=== PATIENT | female | born 1975 | race Caucasian/White ===

== ENCOUNTER 2022-07-20 08:00 | Outpatient (RCR) | payer OTHER, SELFPAY ==
[2022-07-06 08:06] VITALS: BP 134/88; PULSE 81; RESP 16; TEMP 36.1; BMI 29.2
--- NOTE | 2022-07-06 14:59 | PCM.WC.HP ---
History of Present Illness Date of Service: 07/06/22 Chief Complaint: Surgical wound dehiscence, left foot History of Wound: This is a 46-year-old female who is of normal body habitus. She was referred by Dr. Etienne Mike, Podiatric surgeon. The patient underwent left foot surgery on June 07, 2022, at which time the following procedures were performed: Left first metatarsophalangeal joint fusion, left second metatarsal osteotomy, left second proximal interphalangeal joint fusion, left second FDL transfer. The procedures were performed in [place], [place], by Dr. Mike. The patient has developed a slight surgical wound dehiscence at the site of her second metatarsal osteotomy. She has been referred by her keno writer / runner for evaluation and management. Currently, the patient has been using topical antibiotic ointment topically and gauze. She wears a boot, and is non-weight bearing. The patient is generally healthy, with a history of mitral valve prolapse, lumbar disc disease, and gastroesophageal reflux disease. Her BMI is 29.2. 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 Surgical wound dehiscence Home Medications famotidine 40 mg tablet 40 mg PO DAILY 07/06/22 [History Last Taken Unknown] multivitamin with iron 1 tab PO DAILY 07/06/22 [History Last Taken Unknown] naproxen 500 mg tablet 500 mg PO BID 07/06/22 [History Last Taken Unknown] pantoprazole 40 mg tablet,delayed release 40 mg PO BID 07/06/22 [History Last Taken Unknown] Allergy/AdvReac Type Severity Reaction Status Date / Time No Known Allergies Allergy Verified 07/06/22 08:30 Surgical History Postoperative state Social History Smoking Status: Never smoker Vital Signs Vital Signs Vital Signs: 07/06/22 08:06 Temperature 96.9 F L Temperature Source Temporal Pulse Rate 81 Respiratory Rate 16 Blood Pressure 134/88 H Blood Pressure Mean 103 Blood Pressure Source Monitor Blood Pressure Position Sitting Blood Pressure Location Left Arm Oxygen Delivery Method Room Air Weight Weight: 170 lb Body Mass Index (BMI) 29.2 Physical Exam Const alert, oriented x3, no apparent distress, average body habitus and well nourished General Appearance: cooperative, comfortable, well kempt and well developed Orientation / Consciousness: awake, oriented to person, oriented to place and oriented to time Exam Limitations: no limitations HEENT normocephalic, head/scalp atraumatic and hearing grossly normal bilaterally Head and Scalp: normal to inspection, normocephalic and atraumatic External Ear: external ears normal Eyes PERRL and EOMs intact bilaterally General Eye: normal appearance of both eyes Neck full ROM Resp normal respiratory effort, normal air movement, no retractions and no use of accessory muscles Effort and Inspection: able to speak in complete sentences Extremity no calf tenderness General Extremity: Negative for clubbing or cyanosis Skin Wound Narrative: Inspection of the patient's left foot reveal the dorsal incision related to the left first digit to be well approximated and healing appropriately. There is a slight surgical wound dehiscence related to the incision on the dorsal aspect of the left second digit. There is no sign of infection or cellulitis. There is no drainage or odor. There is a moderate amount of bioburden and nonviable tissue. The dimensions of the wound are documented elsewhere. An immobilizing pin remains in place at the distal tip of the patient's left second digit. Neuro oriented x3, CN's II-XII intact bilaterally, moves all extremities and no focal motor deficits Sensorium / Orientation: awake, alert, oriented to person, oriented to place and oriented to time Psych Appearance: grossly normal and appropriate Attitude: calm Activity / Motor Behavior: appropriate eye contact Speech: normal speech Mood & Affect: euthymic mood Thought Process: normal thought process Thought Content: normal thought content Attention / Concentration: attention grossly intact Debridement Note Debridement Note Wound debrided: Left second metatarsal osteotomy incision dehiscence Laterality: Left Type of Debridement: Excisional debridement Anesthesia Used: 5% Lidocaine Gel Depth: Down to and including healthy tissue and in the subcutaneous layer Percentage of wound debrided: 100 Instrument Used: 3mm curette Tissue Removed: Bioburden and nonviable tissue Severity: Fat Layer Exposed Amount of bleeding with debridement: Mild Bleeding Controlled with: Compression and gauze Patient tolerated procedure: Patient tolerated procedure well Post-Debridement Measurements and Additional Note: Post-Debridement Measurements/Treatment TRAVIS - Nurse 1 - General Ulcer Assessment Start: 07/06/22 08:05 Freq: Status: Active Protocol: KAIDEN Activity Type Activity Date Activity User E-sign Co-sign Detail Recorded Client Recorded Date Recorded By Document 07/06/22 08:06 MW [id number] 07/06/22 08:25 MW 07/06/22 08:06 WC - Today's Visit Information Type of service Initial Visit Arrival Mode Ambulatory, Crutches Transfer Assistance None Accompanied by sister Patient Identification Verified (Name & Yes ) Patient Requires Transmission-Based No Precautions Height and Weight Height 5 ft 4 in Weight 170 lb Weight in Pounds 170.0 lbs Body Mass Index (BMI) 29.2 BMI Classification Overweight BSA - Bert 1.83 Vital Signs Temperature (97.8 F-99.1 F) 96.9 F L Temperature Source Temporal Pulse Rate (60-100) 81 Pulse Location Monitor Respiratory Rate (12-18) 16 Respiratory rate source Observation Oxygen Delivery Method Room Air Blood Pressure (90/60-120/80) 134/88 H Blood Pressure Mean 103 Source Monitor Position Sitting Blood Pressure Location Left Arm History Since Last Visit- (Skip if this is Patient's initial visit) Left Footwear Removable Cast Walker/Walking Boot Right Footwear Regular Shoe Pain Scale: 0-10 Numeric Is Patient Pain Free? Yes Lower Extremity Assessment/ Foot Assessment/ Toe Nail Assessment Right -Posterior Tibial Palpable Yes -Posterior Tibial Doppler Multiphasic -Dorsalis Pedis Palpable Yes -Dorsalis Pedis Doppler Multiphasic -Extremity Color Normal -Hair Growth on Legs Yes -Hair Growth on Toes Yes -Temperature of Extremity Cool -Dependent Rubor No -Lipodermatosclerosis No -Other Deformity No -Prior Foot Ulcer No -Charcot Joint No -Prior Amputation No -Thick No -Discolored No -Deformed No -Improper Length & Hygeine No Left -Posterior Tibial Palpable Yes -Posterior Tibial Doppler Multiphasic -Dorsalis Pedis Palpable Yes -Dorsalis Pedis Doppler Multiphasic -Extremity Color Normal -Hair Growth on Legs Yes -Hair Growth on Toes Yes -Temperature of Extremity Warm -Capillary Refill Less than 3 Seconds -Dependent Rubor No -Lipodermatosclerosis No -Other Deformity No -Prior Foot Ulcer No -Charcot Joint No -Prior Amputation No -Thick No -Discolored No -Deformed No -Improper Length & Hygeine No Neuropathy Assessment Feet - Top Side and Bottom <Entered> (a) Communication Assessment Preferred language Georgian Silk Examiner Required No Able to Read Yes Able to Write Yes Communication Tools None Caregiver Communication Skills No Impairment Impairment Right Hearing Abillity Normal Left Hearing Abillity Normal Visual Assistive Devices Glasses Teaching Assessment Preferences Verbal,Written, Audio/Visual, Demonstration Barriers to Learning None Readiness To Learn Excellent Willingness to Engage in Self Management High Activies Anxiety Level Calm Cooperation Cooperative Perception Coherent Interest in Health Problem Asks Questions Education Importance Acknowledges Need Does Patient Smoke tobacco or other Yes substances Smoking Status Never smoker Is Patient Diabetic No Functional Assessment Recent Decline in Ability to Perform Denies Any Declines Assistive Device With Patient Yes List Device(s) with Patient crutches Culture/Methodist/Capacitor Inspector Cultural/Methodist Needs that may affect No Treatment Plan Would you allow our hospital licensed electrician to No meet you for the purpose of spiritual/ emotional support? Capacitor Inspector to contact place of church No Teaching: Wound Center *Welcome to the Wound Center -Person Taught Patient,Family -Teaching Method Discussion -Response to teaching Verbalize understanding (a) 1 - + WC - Nurse 1 - General Ulcer Measurement Start: 07/06/22 08:05 Freq: Status: Active Protocol: Activity Type Activity Date Activity User E-sign Co-sign Detail Recorded Client Recorded Date Recorded By Document 07/06/22 08:06 MW [id number] 07/06/22 08:25 MW 07/06/22 08:06 Wound Center Nurse 1 #1 left 2nd toe -Combined with other wound No -Current Size (cm) - Length 0.5 -Current Size (cm) - Width 0.4 -Current Size (cm) - Depth 0.1 -Total Square Cm 0.20 -Date of Last Picture (Recall this 07/06/22 field) -Photo Taken Yes -Epithelialization None Present -Tunneling No -Undermining/Tunneling No -Circular Undermining No -Exudate Amt Small -Exudate Type Serosanguineous -Wound Margin Flat & Intact -Granulation Amt Small (1-33%) -Granulation Quality Colo -Slough/Fibrin Yes -Necrosis Amt Medium (34-66%) -Necrotic Tissue Type Adherent Slough -Structure Exposed N/A -Texture ([place]-wound Skin Appearance) Assessed, Localized Edema -Moisture ([place]-wound Skin Appearance) No Abnormality, Assessed -Color ([place]-wound Skin Appearance) No Abnormality, Assessed -Temperature ([place]-wound Skin No Abnormality Appearance) (Pt Warm) -Tenderness on Palpation ([place]-wound No Skin Appearance) -Ulcer Cleansing Rinsed/ Irrigated with Saline -Foul Odor after Cleansing No -Anesthetic Used 5% Lidocaine Gel Lower Limb Edema Present No Right Calf (cm) 40.0 Right Ankle (cm) 21.5 Point of measurement (cm from the medial 40.0 instep) Left Ankle (cm) 21.5 WC - Nurse 2 - General Ulcer CM Notes Start: 07/06/22 08:05 Freq: Status: Active Protocol: Activity Type Activity Date Activity User E-sign Co-sign Detail Recorded Client Recorded Date Recorded By Document 07/06/22 11:32 PL [id number] 07/06/22 11:33 PL 07/06/22 11:32 Wound Center Nurse 2 #1 left 2nd toe -Time 08:41 -Correct Patient Yes -Correct Side, Site, Position Yes -Correct Procedure Yes -Procedure Performed Yes -Type of Procedure Debridement -Clinical Debridement Subcutaneous -Tissue Removed Subcutaneous -Post Debridement (cm) - Length 0.5 -Post Debridement (cm) - Width 0.4 -Post Debridement (cm) - Depth 0.1 -Total Square (Post) (cm) 0.20 -Area of Debridement (cm) - Length 0.5 -Area of Debridement (cm) - Width 0.4 -Total Square (Area) (cm) 0.20 -Tunneling No -Undermining/Tunneling No -Circular Undermining No -Wound/Ulcer Outcome Not Healed -Ulcer Cleansing Rinsed/ Irrigated with Saline -Foul Odor after Cleansing No -Bioengineered Tissue No -Bleeding Controlled with Pressure -Treatment Response Procedure Tolerated Well -Debridement - Subq, 1st 20sq cm Yes Pain Scale: 0-10 Numeric Is Patient Pain Free? Yes - Nurse 3 - General Ulcer D/C NN Start: 07/06/22 08:05 Freq: Status: Active Protocol: Activity Type Activity Date Activity User E-sign Co-sign Detail Recorded Client Recorded Date Recorded By Document 07/06/22 08:59 AK [id number] 07/06/22 09:00 AK 07/06/22 08:59 Wound Care Nurse 3 #1 left 2nd toe -Ulcer Cleansing Rinsed/ Irrigated with Saline -Foul Odor after Cleansing No -Negative Pressure Wound Therapy N/A -Other Dressing hydrogel today -Primary Dressing Covered/Secured with Dry Gauze & Roll Gauze, Secured with Tape Pain Scale: 0-10 Numeric Is Patient Pain Free? 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 Etienne Mike on June 07, 2022. Procedures were performed on the first and second digits of the left foot. The surgical incision related to the first digit is well approximated and healing appropriately. The surgical incision related to the left second metatarsal osteotomy and interphalangeal joint fusion is mildly dehiscent. There is no sign of infection or cellulitis. The wound dehiscence has been debrided in the wound healing center today. We are to implement the use of collagenase Santyl applied topically to the wound on a daily basis. Patient has been instructed in the appropriate means of application. She has been provided with a prescription for collagenase Santyl, to be obtained at the local pharmacy. The patient indicates that she will be traveling and will be out of town next week, so follow-up will be scheduled for 2 weeks from this date. The patient has been instructed to implement measures to minimize potential for swelling in the lower extremity which is often inherent with traveling. The patient is to follow-up with Dr. Mike and management of her general surgical recovery. Total time: 58 minutes
[2022-07-20 08:00] VITALS: BP 144/72; PULSE 71; RESP 16; TEMP 35.7; BMI 29.2
--- NOTE | 2022-07-20 09:03 | HP.PCM_ITS ---
History of Present Illness Date of Service: 07/20/22 Chief Complaint: Surgical wound dehiscence, left foot History of Wound: This is a 46-year-old female who is of normal body habitus. She was referred by Dr. Etienne Mike, Podiatric surgeon. The patient underwent left foot surgery on June 07, 2022, at which time the following procedures were performed: Left first metatarsophalangeal joint fusion, left second metatarsal osteotomy, left second proximal interphalangeal joint fusion, left second FDL transfer. The procedures were performed in [place], [place], by Dr. Mike. The patient developed a slight surgical wound dehiscence at the site of her second metatarsal osteotomy. She was referred by her admin prog coord for evaluation and management. The patient had been using topical antibiotic ointment and gauze. She was wearing a boot, and was non-weight bearing. The patient is generally healthy, with a history of mitral valve prolapse, lumbar disc disease, and gastroesophageal reflux disease. Her BMI is 29.2. 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 Surgical wound dehiscence Home Medications famotidine 40 mg tablet 40 mg PO DAILY 07/06/22 [History Last Taken Unknown] multivitamin with iron 1 tab PO DAILY 07/06/22 [History Last Taken Unknown] naproxen 500 mg tablet 500 mg PO BID 07/06/22 [History Last Taken Unknown] pantoprazole 40 mg tablet,delayed release 40 mg PO BID 07/06/22 [History Last Taken Unknown] Allergy/AdvReac Type Severity Reaction Status Date / Time No Known Allergies Allergy Verified 07/06/22 08:30 Surgical History Postoperative state Social History Smoking Status: Never smoker Vital Signs Vital Signs Vital Signs: 07/20/22 08:00 Temperature 96.2 F L Temperature Source Temporal Pulse Rate 71 Respiratory Rate 16 Blood Pressure 144/72 H Blood Pressure Mean 96 Blood Pressure Source Monitor Blood Pressure Position Sitting Blood Pressure Location Left Arm Oxygen Delivery Method Room Air Weight Weight: 170 lb Body Mass Index (BMI) 29.2 Physical Exam Const alert, oriented x3, no apparent distress, average body habitus and well nourished General Appearance: cooperative, comfortable, well kempt and well developed Orientation / Consciousness: awake, oriented to person, oriented to place and oriented to time Exam Limitations: no limitations HEENT normocephalic, head/scalp atraumatic and hearing grossly normal bilaterally Head and Scalp: normal to inspection, normocephalic and atraumatic External Ear: external ears normal Eyes PERRL and EOMs intact bilaterally General Eye: normal appearance of both eyes Neck full ROM Resp normal respiratory effort, normal air movement, no retractions and no use of accessory muscles Effort and Inspection: able to speak in complete sentences Extremity no calf tenderness General Extremity: Negative for clubbing or cyanosis Skin Wound Narrative: Inspection of the patient's left foot reveal the dorsal incision related to the left first digit to be well approximated and healing appropriately. The surgical wound dehiscence at the dorsal aspect of the left second digit is now essentially healed. There remains a very slight superficial eschar. There is no sign of infection or cellulitis. There is no drainage or odor. An immobilizing pin, previously noted, has now been removed. Neuro oriented x3, CN's II-XII intact bilaterally, moves all extremities and no focal motor deficits Sensorium / Orientation: awake, alert, oriented to person, oriented to place and oriented to time Psych Appearance: grossly normal and appropriate Attitude: calm Activity / Motor Behavior: appropriate eye contact Speech: normal speech Mood & Affect: euthymic mood Thought Process: normal thought process Thought Content: normal thought content Attention / Concentration: attention grossly intact Debridement Note Debridement Note No debridement was completed: No debridement was completed today (The patient's left second metatarsal surgical wound dehiscence appears to be healed.) Post-Debridement Measurements and Additional Note: Post-Debridement Measurements/Treatment TRAVIS - Nurse 1 - General Ulcer Assessment Start: 07/06/22 08:05 Freq: Status: Active Protocol: KAIDEN Activity Type Activity Date Activity User E-sign Co-sign Detail Recorded Client Recorded Date Recorded By Document 07/06/22 08:06 MW [id number] 07/06/22 08:25 MW Document 07/20/22 08:00 BMF [id number] 07/20/22 08:06 [facility] 07/06/22 07/20/22 08:06 08:00 WC - Today's Visit Information Type of service Initial Visit 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 ) Arrival Mode Ambulatory, Ambulatory Crutches Transfer Assistance None None Accompanied by sister Patient Identification Verified (Name & Yes Yes ) Patient Requires Transmission-Based No No Precautions Height and Weight Height 5 ft 4 in Weight 170 lb Weight in Pounds 170.0 lbs Body Mass Index (BMI) 29.2 29.2 BMI Classification Overweight Overweight BSA - Bert 1.83 Vital Signs Temperature (97.8 F-99.1 F) 96.9 F L 96.2 F L Temperature Source Temporal Temporal Pulse Rate (60-100) 81 71 Pulse Location Monitor Monitor Respiratory Rate (12-18) 16 16 Respiratory rate source Observation Observation Oxygen Delivery Method Room Air Room Air Blood Pressure (90/60-120/80) 134/88 H 144/72 H Blood Pressure Mean 103 96 Source Monitor Monitor Position Sitting Sitting Blood Pressure Location Left Arm Left Arm History Since Last Visit- (Skip if this is Patient's initial visit) Have you changed medications since your No last visit? Any new allergies or adverse reactions No Had a fall/change in ADL's that may No increase risk of falls Signs or symptoms of abuse and/or No neglect since last visit Have you been in the hospital since your No last visit? Has dressing in place as prescribed Yes Has offloadiing in place as prescribed Yes Experienced any changes in pain level or No management Left Footwear Removable Cast Removable Cast Walker/Walking Walker/Walking Boot Boot Right Footwear Regular Shoe Surgical Shoe with pressure relief insole Pain Scale: 0-10 Numeric Is Patient Pain Free? Yes Yes Lower Extremity Assessment/ Foot Assessment/ Toe Nail Assessment Right -Posterior Tibial Palpable Yes -Posterior Tibial Doppler Multiphasic -Dorsalis Pedis Palpable Yes -Dorsalis Pedis Doppler Multiphasic -Extremity Color Normal -Hair Growth on Legs Yes -Hair Growth on Toes Yes -Temperature of Extremity Cool -Dependent Rubor No -Lipodermatosclerosis No -Other Deformity No -Prior Foot Ulcer No -Charcot Joint No -Prior Amputation No -Thick No -Discolored No -Deformed No -Improper Length & Hygeine No Left -Posterior Tibial Palpable Yes -Posterior Tibial Doppler Multiphasic -Dorsalis Pedis Palpable Yes -Dorsalis Pedis Doppler Multiphasic -Extremity Color Normal -Hair Growth on Legs Yes -Hair Growth on Toes Yes -Temperature of Extremity Warm -Capillary Refill Less than 3 Seconds -Dependent Rubor No -Lipodermatosclerosis No -Other Deformity No -Prior Foot Ulcer No -Charcot Joint No -Prior Amputation No -Thick No -Discolored No -Deformed No -Improper Length & Hygeine No Neuropathy Assessment Feet - Top Side and Bottom <Entered> (a) Communication Assessment Preferred language [place] Brand Recorder Required No Able to Read Yes Able to Write Yes Communication Tools None Caregiver Communication Skills No Impairment Impairment Right Hearing Abillity Normal Left Hearing Abillity Normal Visual Assistive Devices Glasses Teaching Assessment Preferences Verbal,Written, Audio/Visual, Demonstration Barriers to Learning None Readiness To Learn Excellent Willingness to Engage in Self Management High Activies Anxiety Level Calm Cooperation Cooperative Perception Coherent Interest in Health Problem Asks Questions Education Importance Acknowledges Need Does Patient Smoke tobacco or other Yes substances Smoking Status Never smoker Is Patient Diabetic No Functional Assessment Recent Decline in Ability to Perform Denies Any Declines Assistive Device With Patient Yes List Device(s) with Patient crutches Culture/Spiritism/Roofing Subcontractor Cultural/Spiritism Needs that may affect No Treatment Plan Would you allow our hospital costume specialist to No meet you for the purpose of spiritual/ emotional support? Roofing Subcontractor to contact place of holiness No Teaching: Wound Center *Welcome to the Wound Center -Person Taught Patient,Family -Teaching Method Discussion -Response to teaching Verbalize understanding (a) 1 - + WC - Nurse 1 - General Ulcer Measurement Start: 07/06/22 08:05 Freq: Status: Active Protocol: Activity Type Activity Date Activity User E-sign Co-sign Detail Recorded Client Recorded Date Recorded By Document 07/06/22 08:06 [id number] 07/06/22 08:25 MW Document 07/20/22 08:00 [facility] [id number] 07/20/22 08:06 [facility] 07/06/22 07/20/22 08:06 08:00 Wound Center Nurse 1 #1 left 2nd toe -Combined with other wound No No -Current Size (cm) - Length 0.5 0.1 -Current Size (cm) - Width 0.4 0.1 -Current Size (cm) - Depth 0.1 0.1 -Total Square Cm 0.20 0.01 -Date of Last Picture (Recall this 07/06/22 07/20/22 field) -Photo Taken Yes Yes -Epithelialization None Present Large 67-100% -Tunneling No No -Undermining/Tunneling No No -Circular Undermining No No -Exudate Amt Small None Present -Exudate Type Serosanguineous -Wound Margin Flat & Intact -Granulation Amt Small (1-33%) -Granulation Quality [place] -Slough/Fibrin Yes -Necrosis Amt Medium (34-66%) -Necrotic Tissue Type Adherent Slough -Structure Exposed N/A -Texture ([place]-wound Skin Appearance) Assessed, Assessed, Localized Edema Scarring -Moisture ([place]-wound Skin Appearance) No Abnormality, Assessed Assessed -Color ([place]-wound Skin Appearance) No Abnormality, Assessed Assessed -Temperature ([place]-wound Skin No Abnormality No Abnormality Appearance) (Pt Warm) (Pt Warm) -Tenderness on Palpation ([place]-wound No No Skin Appearance) -Ulcer Cleansing Rinsed/ Rinsed/ Irrigated with Irrigated with Saline Saline -Foul Odor after Cleansing No No -Anesthetic Used 5% Lidocaine 5% Lidocaine Gel Gel Lower Limb Edema Present No Right Calf (cm) 40.0 Right Ankle (cm) 21.5 Point of measurement (cm from the medial 40.0 instep) Left Ankle (cm) 21.5 WC - Nurse 2 - General Ulcer CM Notes Start: 07/06/22 08:05 Freq: Status: Active Protocol: Activity Type Activity Date Activity User E-sign Co-sign Detail Recorded Client Recorded Date Recorded By Document 07/06/22 11:32 PL [id number] 07/06/22 11:33 PL Document 07/20/22 08:21 MW [id number] 07/20/22 08:22 MW 07/06/22 07/20/22 11:32 08:21 Wound Center Nurse 2 #1 left 2nd toe -Time 08:41 08:21 -Correct Patient Yes Yes -Correct Side, Site, Position Yes Yes -Correct Procedure Yes Yes -Procedure Performed Yes No -Type of Procedure Debridement -Clinical Debridement Subcutaneous -Tissue Removed Subcutaneous -Post Debridement (cm) - Length 0.5 0 -Post Debridement (cm) - Width 0.4 0 -Post Debridement (cm) - Depth 0.1 0 -Total Square (Post) (cm) 0.20 0 -Area of Debridement (cm) - Length 0.5 -Area of Debridement (cm) - Width 0.4 -Total Square (Area) (cm) 0.20 -Tunneling No -Undermining/Tunneling No -Circular Undermining No -Wound/Ulcer Outcome Not Healed Healed- Epithelialized -Ulcer Cleansing Rinsed/ Not Cleansed Irrigated with Saline -Foul Odor after Cleansing No No -Bioengineered Tissue No No -Bleeding Controlled with Pressure NA -Treatment Response Procedure Tolerated Well -Offloading No -Debridement - Subq, 1st 20sq cm Yes Pain Scale: 0-10 Numeric Is Patient Pain Free? Yes Yes - Nurse 3 - General Ulcer D/C NN Start: 07/06/22 08:05 Freq: Status: Active Protocol: Activity Type Activity Date Activity User E-sign Co-sign Detail Recorded Client Recorded Date Recorded By Document 07/06/22 08:59 SC [id number] 07/06/22 09:00 SC Document 07/20/22 08:27 [facility] [id number] 07/20/22 08:28 [facility] 07/06/22 07/20/22 08:59 08:27 Wound Care Center Nurse 3 #1 left 2nd toe -Ulcer Cleansing Rinsed/ Irrigated with Saline -Foul Odor after Cleansing No -Negative Pressure Wound Therapy N/A -Other Dressing hydrogel today -Primary Dressing Covered/Secured with Dry Gauze & Roll Gauze, Secured with Tape Pain Scale: 0-10 Numeric Is Patient Pain Free? 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 Etienne Mike on June 07, 2022. Procedures were performed on the first and second digits of the left foot. The surgical incision related to the first digit is well approximated and healing appropriately. The surgical incision related to the left second metatarsal osteotomy and interphalangeal joint fusion was mildly dehiscent, at the patient's initial visit. However, it now appears to be completely healed, with only very superficial, dry eschar, expected to slough spontaneously. There is no sign of infection or cellulitis. The patient has done well, having responded well to the implemented measures. She is to be discharged, and will follow-up henceforth on an as-needed basis. 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 The patient is to follow-up with Dr. Mike regarding oversight of her postsurgical recovery. Total time: 28 minutes
== END 2022-07-20 14:20 | disposition home or self-care (01) ==
LOC: WC 08:00
PROVIDERS: PCP Internal Medicine; Visit Provider Surgery
DX: T81.31XA Disruption of external operation (surgical) wound, not elsewhere classified, initial encounter (principal); K21.9 Gastro-esophageal reflux disease without esophagitis; R60.0 Localized edema; I34.1 Nonrheumatic mitral (valve) prolapse; G62.9 Polyneuropathy, unspecified; M25.872 Other specified joint disorders, left ankle and foot; M20.22 Hallux rigidus, left foot; M51.9 Unspecified thoracic, thoracolumbar and lumbosacral intervertebral disc disorder; Z98.890 Other specified postprocedural states
CPT/HCPCS: 11042; 99213; G0463